=== PATIENT | male | born 1960 | race Caucasian/White ===

== ENCOUNTER → 2021-03-08 | Day surgery (SDC) | payer OTHER ==
[~2021-03-08] MED LIST: Lactated Ringers 1,000 ML IV SCH; Lidocaine 2% 5 ML SDV ONE; Midazolam 1 MG/ML 2 ML SDV ONE; Propofol 200 MG/20 ML SDV ONE; Sodium Chloride 0.9% 10 ML Syringe FLUSH PRN
--- NOTE | 2021-03-08 09:04 | PCM.PN ---
- General Info Date of Service: 03/08/21 - Review of Systems Systems Review Comment:: 60-year-old male referred for EGD and colonoscopy. He has been having symptoms of right-sided throat pain. He is also been diagnosed with GERD. Patient last colonoscopy was about 5 years ago and he has a history of polyps. He is medically stable to proceed today. His recent history and physical is reviewed and no significant changes are noted. I have discussed the proposed EGD and colonoscopy with the patient. He agrees to proceed accepting risks. - Patient Data Vitals - Most Recent: Last Vital Signs Temp 98.4 F 03/08/21 08:24 Pulse 72 03/08/21 08:24 Resp 18 03/08/21 08:24 BP 109/76 03/08/21 08:24 Pulse Ox 95 03/08/21 08:24 Weight - Most Recent: 83.915 kg Med Orders - Current: Current Medications Lactated Ringer's (Ringers, Lactated) 1,000 mls @ 125 mls/hr IV ASDIRECTED BOB Last Admin: 03/08/21 08:38 Dose: 125 mls/hr Documented by: Sodium Chloride (Sodium Chloride 0.9% 10 Ml Syringe) 10 ml FLUSH ASDIRECTED PRN PRN Reason: Keep Vein Open Discontinued Medications Midazolam HCl (Midazolam 1 Mg/Ml 2 Ml Sdv) Confirm Administered Dose 2 mg .ROUTE .STK-MED ONE Stop: 03/08/21 08:45 Propofol (Propofol 200 Mg/20 Ml Sdv) Confirm Administered Dose 400 mg .ROUTE .STK-MED ONE Stop: 03/08/21 08:46 Sepsis Event Note - Focused Exam Vital Signs: Vital Signs Temp Pulse Resp BP Pulse Ox 03/08/21 08:24 98.4 F 72 18 109/76 95 - Problem List Review Problem List Initiated/Reviewed/Updated: Yes - My Orders Last 24 Hours: My Active Orders 03/08/21 08:00 Patient Status [ADT] Routine Peripheral IV Care [RC] . DIRECTED Verify Patient Consent Obtain [RC] ASDIRECTED Lactated Ringers [Ringers, Lactated] 1,000 ml IV ASDIRECTED Sodium Chloride 0.9% [Saline Flush] 10 ml FLUSH ASDIRECTED PRN Peripheral IV Insertion Adult [OM.PC] Routine - Assessment Assessment:: GERD Throat pain History of colon polyps - Plan Plan:: EGD and colonoscopy
--- NOTE | 2021-03-08 09:46 | PCM.OPNOTE ---
- General Post-Op/Procedure Note Date of Surgery/Procedure: 03/08/21 Operative Procedure(s): EGD and Colonoscopy with Polypectomy Findings: Mild inflammation along the right side of pharynx Upper Endoscopy otherwise normal Moderate Sigmoid Diverticulosis Rectal Polyp Moderate sized hemorrhoids Pre Op Diagnosis: GERD. History of colon polyps Post-Op Diagnosis: Pharyngitis. Sigmoid Diverticulosis. Rectal Polyp. hemorrhoids Anesthesia Technique: MAC Primary Surgeon: Jakob Delatorre Pathology: Rectal Polyp EBL in mLs: 0 Complications: None Condition: Good
[2021-03-08 12:16] VITALS: BP 127/87; PULSE 65
--- NOTE | 2021-03-08 12:44 | OR ---
Date of Procedure: 03/08/2021 PREOPERATIVE DIAGNOSES: 1. Gastroesophageal reflux disease with throat pain. 2. History of colon polyps. POSTOPERATIVE DIAGNOSES: 1. Pharyngitis. 2. Rectal polyp. 3. Sigmoid diverticulosis. 4. Hemorrhoids. OPERATIONS PERFORMED: Esophagogastroduodenoscopy and colonoscopy with polypectomy. INDICATIONS FOR SURGERY: This 60-year-old male has some GERD-like symptoms as well as some pain along the right side of his throat. He also has a history of colon polyps. FINDINGS: On upper endoscopy, the patient has a mild degree of inflammation in his oropharynx, although I do not see any lesion, anatomic abnormality, or ulceration. His esophagus, stomach, and duodenum otherwise appear normal. On colonoscopy, the patient has a moderate degree of diverticulosis in the sigmoid colon, which does not appear to be acutely inflamed or otherwise complicated. He has a single polyp in the rectum 5 cm from the anal verge, which is 6 mm in size. There is also moderate amount of internal hemorrhoids. The colon otherwise appears normal. DESCRIPTION OF PROCEDURE: The patient was taken to the operating room. He was given intravenous sedation, and with him in the left lateral decubitus position, the Olympus gastroscope was advanced through a mouth guard into the oral cavity. Under direct visualization, the scope was then carefully advanced through the oropharynx and examination as could be achieved with the gastroscope was carried out in this area with only mild inflammation being seen, but no other lesions noted. The scope was then carefully advanced down through the esophagus, stomach, and into the duodenum, where examination to the third portion was performed. After examining the duodenum, the scope was withdrawn back into the stomach where full examination including retroflexed examination of the fundus was carried out. The GE junction and esophagus were then re-examined as the scope was withdrawn and again no other lesions were seen during withdrawal of the scope through the oropharynx. Attention was turned to colonoscopy. Digital rectal exam was performed showing no rectal masses. The Olympus colonoscope was inserted into the rectum. Retroflexed examination of the rectal canal was performed. In the rectum, the above-described polyp was identified. This was removed with a cautery snare and retrieved. The scope was then carefully advanced under direct visualization through the entire length of the colon until the cecum was reached. Cecal acquisition was confirmed by noting the normal internal cecal anatomy including the appendiceal orifice and the ileocecal valve. The light was also noted to transilluminate the abdominal wall in the right lower quadrant. After examining the cecum, the scope was slowly withdrawn sequentially re-examining the colonic segments until the entire colon and rectum had been fully examined. The scope was removed. The patient was taken from the operating room in satisfactory condition. ESTIMATED BLOOD LOSS: 0. COMPLICATIONS: None. PROGNOSIS: Good. GERI Delatorre MD /[id number]
== END | disposition home or self-care (01) ==
LOC: LL.SDS 07:52
PROVIDERS: ATTEND Surgery
DX: Z12.11 Encounter for screening for malignant neoplasm of colon (principal); K62.1 Rectal polyp; K21.9 Gastro-esophageal reflux disease without esophagitis; K57.30 Diverticulosis of large intestine without perforation or abscess without bleeding; K64.8 Other hemorrhoids; J02.9 Acute pharyngitis, unspecified; E78.5 Hyperlipidemia, unspecified; I25.10 Atherosclerotic heart disease of native coronary artery without angina pectoris; Z79.899 Other long term (current) drug therapy; Z79.82 Long term (current) use of aspirin
CPT/HCPCS: 00813; J2250; J2704; J7120

== ENCOUNTER 2021-08-02 03:22 | Emergency (ER) | payer OTHER ==
[2021-08-02 03:28] VITALS: BP 114/65; PULSE 81
[2021-08-02] MEDS ORDERED: GI Cocktail Oral Solution 30 ML PO ONE (04:08)
[2021-08-02] MEDS ORDERED: Sodium Chloride 0.9% 10 ML Syringe FLUSH PRN (04:08)
--- NOTE | 2021-08-02 04:15 | EDM.PDOC ---
ED HPI GENERAL MEDICAL PROBLEM - General Chief Complaint: Abdominal Pain Stated Complaint: abdominal pain Time Seen by Provider: 08/02/21 03:59 Source of Information: Reports: Patient - History of Present Illness INITIAL COMMENTS - FREE TEXT/NARRATIVE: Adithya is a 61 y/o male who comes to the ER with complaints of abdominal pain. He reports ot feeling well since Friday. Tonight when he got back from [place] he started to have chills and just felt awful. He hasn't had much appetite since Friday. No vomiting or diarrhea. Maybe a little constipated. Feels some urgency when using the bathroom to urinate. Denies ever feeling like this before. Pain is good now, but at times it's sharp. Abdominal Pain Pain Score (Numeric/FACES): 1 - Related Data Allergies Allergy/AdvReac Type Severity Reaction Status Date / Time No Known Allergies Allergy Verified 08/02/21 03:23 Home Meds: Home Meds Nicotine Polacrilex [Nicorette] 4 mg BC ASDIRECTED 10/03/15 [History] valACYclovir [Valtrex] 1,000 mg PO BID PRN 03/07/21 [History] Cholecalciferol (Vitamin D3) [Vitamin D3] 1 tab PO DAILY 03/08/21 [History] Fish Oil/Boling-3 Fatty Acids [Fish Oil 1,000 MG] 1 cap PO DAILY 03/08/21 [History] Multivitamins [Tab-A-John] 1 tab PO DAILY 03/08/21 [History] Ascorbic Acid [Vitamin C] 1,000 mg PO DAILY 08/02/21 [History] Ciprofloxacin HCl [Cipro] 500 mg PO BID #20 tablet 08/02/21 [Rx] Zinc 50 mg PO DAILY 08/02/21 [History] metroNIDAZOLE [Flagyl] 500 mg PO Q8H #30 tab 08/02/21 [Rx] Past Medical History Cardiovascular History: Reports: CAD, High Cholesterol Respiratory History: Reports: COPD Gastrointestinal History: Reports: Colon Polyp, Diverticulosis, GERD Genitourinary History: Reports: Other (See Below) Other Genitourinary History: Erectile Dysfunction Musculoskeletal History: Reports: Arthritis Endocrine/Metabolic History: Reports: Vitamin D Deficiency Other Endocrine/Metabolic History: hyperglycemia - Past Surgical History GI Surgical History: Reports: Colonoscopy, EGD, Polypectomy Social & Family History - Tobacco Use Tobacco Use Status *Q: Former Tobacco User Used Tobacco, but Quit: Yes Month/Year Tobacco Last Used: quit in 2010 - Caffeine Use Caffeine Use: Reports: Coffee - Recreational Drug Use Recreational Drug Use: No Review of Systems - Review of Systems Review Of Systems: See Below Constitutional: Reports: Chills Eyes: Reports: No Symptoms Ears: Reports: No Symptoms Nose: Reports: No Symptoms Mouth/Throat: Reports: No Symptoms Respiratory: Reports: No Symptoms Cardiovascular: Reports: No Symptoms GI/Abdominal: Reports: Abdominal Pain, Decreased Appetite Genitourinary: Reports: Painful Urination (mild urgency) Musculoskeletal: Reports: No Symptoms Skin: Reports: No Symptoms Neurological: Reports: No Symptoms ED EXAM, GENERAL - Physical Exam Exam: See Below General Appearance: Alert, WD/WN, No Apparent Distress (elerly male, neatly dressed and pleasant) Ears: Normal External Exam, Normal Canal, Hearing Grossly Normal Nose: Normal Inspection Throat/Mouth: Normal Inspection, Normal Lips, Normal Oropharynx, Normal Voice Head: Atraumatic, Normocephalic Neck: Normal Inspection, Supple Respiratory/Chest: No Respiratory Distress, Lungs Clear, Chest Non-Tender Cardiovascular: Normal Peripheral Pulses, Regular Rate, Rhythm, No Murmur GI/Abdominal: Normal Bowel Sounds, Soft, No Distention, Tender (LUQ with palpation) (Male) Exam: Deferred Rectal (Males) Exam: Deferred Back Exam: Normal Inspection. No: CVA Tenderness (L), CVA Tenderness (R) Extremities: Normal Inspection, Normal Range of Motion, No Pedal Edema, Normal Capillary Refill Neurological: Alert, Oriented, CN II-XII Intact, No Motor/Sensory Deficits Skin Exam: Warm, Dry, Intact, Normal Color Lymphatic: No Adenopathy Course - Vital Signs Text/Narrative:: 0359 The patient was seen by the [employer]. Labs ordered. He was given a GI cocktail since he felt some epigastric discomfort. Denies need fro pain meds. 0416 Labs reviewed, WBC mildly elevated with neutrophils up. CT ordered. 0545 CT results discussed with pt and . Will treat with abx. Written instructions were given and he left the ER in stable condition. Last Recorded V/S: Last Vital Signs Temp 37.1 C 08/02/21 03:26 Pulse 81 08/02/21 03:26 Resp 18 08/02/21 03:26 BP 114/65 08/02/21 03:26 Pulse Ox 96 08/02/21 03:26 - Orders/Labs/Meds Orders: Active Orders 24 hr Category Date Time Status Abdomen Pelvis w Cont [CT] Stat Exams 08/02/21 04:08 Taken Sodium Chloride 0.9% [Saline Flush] Med 08/02/21 04:08 Active 10 ml FLUSH ASDIRECTED PRN Saline Lock Insert [OM.PC] Stat Oth 08/02/21 04:08 Ordered Medication Orders Sodium Chloride (Sodium Chloride 0.9% 10 Ml Syringe) 10 ml FLUSH ASDIRECTED PRN PRN Reason: Keep Vein Open Labs: Laboratory Tests 08/02/21 08/02/21 08/02/21 Range/Units 03:45 03:50 03:50 WBC 11.3 H (4.0-10.2) K/uL RBC 5.05 (4.33-5.41) M/uL Hgb 15.1 (13.1-16.8) g/dL Hct 45.2 (39.0-49.0) % MCV 89.5 (84.0-98.0) fL MCH 29.9 (28.2-33.3) pg MCHC 33.4 (31.7-36.0) g/dL RDW 12.9 (11.2-14.1) % Plt Count 191 (150-350) K/uL Neut % (Auto) 77.1 (45.0-80.0) % Lymph % (Auto) 12.2 (10.0-50.0) % [place] % (Auto) 8.7 (2.0-14.0) % Eos % (Auto) 1.7 (0.0-5.0) % Baso % (Auto) 0.3 (0.0-2.0) % Neut # (Auto) 8.69 H (1.40-7.00) K/uL Lymph # (Auto) 1.37 (0.50-3.50) K/uL [place] # (Auto) 0.98 (0.00-1.00) K/uL Eos # (Auto) 0.19 (0.00-0.50) K/uL Baso # (Auto) 0.03 (0.00-0.20) K/uL Sodium 140 (136-145) mmol/L Potassium 4.3 (3.5-5.1) mmol/L Chloride 104 (98-107) mmol/L Carbon Dioxide 25.5 (21.0-32.0) mmol/L Anion Gap 10.5 (7-15) meq/L BUN 19 H (7-18) mg/dL Creatinine 0.95 (0.51-1.17) mg/dL Est Cr Clr Drug Dosing 89.17 mL/min Estimated GFR (MDRD) > 60 mL/min Glucose 91 (70-99) mg/dL Calcium 8.8 (8.5-10.1) mg/dL Magnesium (1.8-2.4) mg/dL Total Bilirubin 1.0 (0.2-1.0) mg/dL AST 22 (15-37) U/L ALT 62 (12-78) U/L Alkaline Phosphatase 84 (46-116) IU/L Troponin I High Sens (<=76) ng/L C-Reactive Protein (<=0.9) mg/dL Total Protein 7.0 (6.4-8.2) g/dL Albumin 3.4 (3.4-5.0) g/dL Amylase (25-115) U/L Lipase (73-393) U/L Specimen Type Urinvoid Urine Color Yellow Urine Appearance Clear Urine pH 5.5 (5.0-9.0) Ur Specific [place] 1.015 (1.005-1.030) Urine Protein Negative (NEGATIVE) mg/dL Urine Glucose (UA) Negative (NEGATIVE) mg/dL Urine Ketones 40 H (NEGATIVE) mg/dL Urine Occult Blood Negative (NEGATIVE) Urine Nitrite Negative (NEGATIVE) Urine Bilirubin Negative (NEGATIVE) Urine Urobilinogen 0.2 (0.2-1.0) E.U./dL Ur Leukocyte Esterase Negative (NEGATIVE) Urine RBC 0-5 /HPF Urine WBC 0-5 /HPF Ur Epithelial Cells Rare /LPF Urine Bacteria Not seen (NONE TO FEW) /HPF Urine Mucus Moderate H (NEGATIVE) /LPF 08/02/21 Range/Units 03:50 WBC (4.0-10.2) K/uL RBC (4.33-5.41) M/uL Hgb (13.1-16.8) g/dL Hct (39.0-49.0) % MCV (84.0-98.0) fL MCH (28.2-33.3) pg MCHC (31.7-36.0) g/dL RDW (11.2-14.1) % Plt Count (150-350) K/uL Neut % (Auto) (45.0-80.0) % Lymph % (Auto) (10.0-50.0) % [place] % (Auto) (2.0-14.0) % Eos % (Auto) (0.0-5.0) % Baso % (Auto) (0.0-2.0) % Neut # (Auto) (1.40-7.00) K/uL Lymph # (Auto) (0.50-3.50) K/uL [place] # (Auto) (0.00-1.00) K/uL Eos # (Auto) (0.00-0.50) K/uL Baso # (Auto) (0.00-0.20) K/uL Sodium (136-145) mmol/L Potassium (3.5-5.1) mmol/L Chloride (98-107) mmol/L Carbon Dioxide (21.0-32.0) mmol/L Anion Gap (7-15) meq/L BUN (7-18) mg/dL Creatinine (0.51-1.17) mg/dL Est Cr Clr Drug Dosing mL/min Estimated GFR (MDRD) mL/min Glucose (70-99) mg/dL Calcium (8.5-10.1) mg/dL Magnesium 1.9 (1.8-2.4) mg/dL Total Bilirubin (0.2-1.0) mg/dL AST (15-37) U/L ALT (12-78) U/L Alkaline Phosphatase (46-116) IU/L Troponin I High Sens 13 (<=76) ng/L C-Reactive Protein 10.9 H (<=0.9) mg/dL Total Protein (6.4-8.2) g/dL Albumin (3.4-5.0) g/dL Amylase 59 (25-115) U/L Lipase 86 (73-393) U/L Specimen Type Urine Color Urine Appearance Urine pH (5.0-9.0) Ur Specific [place] (1.005-1.030) Urine Protein (NEGATIVE) mg/dL Urine Glucose (UA) (NEGATIVE) mg/dL Urine Ketones (NEGATIVE) mg/dL Urine Occult Blood (NEGATIVE) Urine Nitrite (NEGATIVE) Urine Bilirubin (NEGATIVE) Urine Urobilinogen (0.2-1.0) E.U./dL Ur Leukocyte Esterase (NEGATIVE) Urine RBC /HPF Urine WBC /HPF Ur Epithelial Cells /LPF Urine Bacteria (NONE TO FEW) /HPF Urine Mucus (NEGATIVE) /LPF Meds: Medications Generic Name Dose Route Start Last Admin Trade Name Freq PRN Reason Stop Dose Admin Sodium Chloride 10 ml 08/02/21 04:08 Sodium Chloride 0.9% 10 Ml Syringe FLUSH ASDIRECTED PRN Keep Vein Open Discontinued Medications Generic Name Dose Route Start Last Admin Trade Name Freq PRN Reason Stop Dose Admin Al Hydroxide/Mg Hydroxide 30 ml 08/02/21 04:08 08/02/21 04:20 Gi Cocktail Oral Solution 30 Ml PO 08/02/21 04:09 30 ml ONETIME ONE Administration Iopamidol 100 ml 08/02/21 04:28 08/02/21 04:51 Iopamidol 612 Mg/Ml 100 Ml Bottle IVPUSH 08/02/21 04:29 100 ml ONETIME ONE Administration - Radiology Interpretation Free Text/Narrative:: CT Abd/Pelvis W=Diverticulitis noted on transverse colon (See final report) Departure - Departure Time of Disposition: 05:50 Disposition: Home, Self-Care 01 Condition: Good Clinical Impression: Diverticulitis large intestine Qualifiers: Diverticulitis bleeding: without bleeding Diverticulitis complication: without perforation or abscess Qualified Code(s): K57.32 - Diverticulitis of large intestine without perforation or abscess without bleeding - Discharge Information Prescriptions: Ciprofloxacin HCl [Cipro] 500 mg PO BID #20 tablet metroNIDAZOLE [Flagyl] 500 mg PO Q8H #30 tab Instructions: Diverticulitis Referrals: Mata Morrison PA [Primary Care Provider] - Forms: ED Department Discharge Additional Instructions: -Cipro 500mg oral 2x daily for 10 days #20(Rx) -Metronidiazole 500mg oral 3x daily for 10 days #30(Rx) -Ondanestron 8mg oral every 8 hour as needed for nausea #10(Rx-ER) -Rest -Stay hydrated -Review Diverticular diet information -Follow up with your PCP for further concerns or return to the ER for any concerns Sepsis Event Note (ED) - Evaluation Sepsis Screening Result: No Definite Risk - Focused Exam Vital Signs: Vital Signs Temp Pulse Resp BP Pulse Ox 08/02/21 03:26 37.1 C 81 18 114/65 96 - Problem List & Annotations (1) Diverticulitis large intestine SNOMED Code(s): 6959568 Code(s): K57.32 - DVTRCLI OF LG INT W/O PERFORATION OR ABSCESS W/O BLEEDING Status: Acute Current Visit: Yes Annotation/Comment:: Cipro/Flagyl x 10 days, along with prn Zofran Qualifiers: Diverticulitis bleeding: without bleeding Diverticulitis complication: without perforation or abscess Qualified Code(s): K57.32 - Diverticulitis of large intestine without perforation or abscess without bleeding - Problem List Review Problem List Initiated/Reviewed/Updated: Yes - My Orders Last 24 Hours: My Active Orders 08/02/21 04:08 Abdomen Pelvis w Cont [CT] Stat Sodium Chloride 0.9% [Saline Flush] 10 ml FLUSH ASDIRECTED PRN Saline Lock Insert [OM.PC] Stat - Assessment/Plan Last 24 Hours: My Active Orders 08/02/21 04:08 Abdomen Pelvis w Cont [CT] Stat Sodium Chloride 0.9% [Saline Flush] 10 ml FLUSH ASDIRECTED PRN Saline Lock Insert [OM.PC] Stat Plan: See above
[2021-08-02 04:17] LABS: ANION GAP 10.5 meq/L (7-15); CHLORIDE,CL 104 mmol/L (98-107); SODIUM,NA 140 mmol/L (136-145)
[2021-08-02] MEDS ORDERED: Iopamidol 612 MG/ML 100 ML Bottle IVPUSH ONE (04:28)
== END 2021-08-02 06:15 | disposition home or self-care (01) ==
LOC: LL.ED 03:22
DX: K57.32 Diverticulitis of large intestine without perforation or abscess without bleeding (principal); I25.10 Atherosclerotic heart disease of native coronary artery without angina pectoris; E78.00 Pure hypercholesterolemia, unspecified; J44.9 Chronic obstructive pulmonary disease, unspecified; Z87.891 Personal history of nicotine dependence
CPT/HCPCS: 36415; 74177; 80053; 81001; 82150; 83690; 83735; 84484; 85025; 86140; 99284; A9270; Q9967